=== PATIENT | female | born 1980 | race Caucasian/White ===

== ENCOUNTER 2016-10-06 09:06 | Outpatient (CLI) | payer MEDICAID ==
[2014-08-06 07:34] VITALS: BMI 38.8
[~2016-10-06 09:06] MED LIST: KLONOPIN1 MG PO; PRENATAL COMPLE1 TAB PO
== END 2016-10-06 09:22 ==
LOC: D.MAMMO 09:06
DX: Z12.31 Encounter for screening mammogram for malignant neoplasm of breast (principal)